=== PATIENT | female | born 1965 | race Caucasian/White ===

== ENCOUNTER 2019-11-29 07:39 | Outpatient (CLI) | payer OTHER | END 2019-11-29 07:47 | disposition home or self-care (01) | LOC: RX STUDY 07:39 | PROVIDERS: ATTEND Internal Medicine Cardiovascular Disease | DX: R13.19 Other dysphagia (principal); K21.9 Gastro-esophageal reflux disease without esophagitis ==

== ENCOUNTER 2020-04-28 08:19 | Outpatient (CLI) | payer OTHER | END 2020-04-28 08:39 | disposition home or self-care (01) | LOC: TOM 08:19 | DX: K63.5 Polyp of colon (principal) ==